=== PATIENT | female | born 1995 | race Two or more races ===

== ENCOUNTER 2024-11-21 20:24 | Emergency (ER) | payer MEDICAID, SELFPAY ==
[2024-11-21 20:39] VITALS: BP 101/70; PULSE 82; RESP 18; TEMP 36.6; O2SAT 98
--- NOTE | 2024-11-21 21:18 | EDNOTE_ITS ---
<Statement entered by Linda Gracia MD - 01/29/25 19:07> As co-signing physician, I was present and available for consult prn. I concur with the plan and care as documented by the midlevel provider. ED Headache RME/HPI General Chief Complaint: Headache Stated Complaint: HEADACHE AND VOMITING Time Seen by Provider: 11/21/24 20:39 Arrival date/time: 11/21/24 20:24 RME / HPI RME / HPI Narrative: 29-year-old female presents to the ED with a complaint of right sided headache that began around noon today. The pain gradually became worse. She took 1 Tylenol tablet twice today without any relief. She denies any previous history of headaches. Her mother has a history of migraine headaches. She is currently 15 weeks and has had an ultrasound. She has had ongoing mild nausea and vomiting however today the vomiting is much worse since the onset of the headache. She denies any recent illness with fever, chills, cough, upper respiratory complaints, abdominal pain or diarrhea. She denies any visual or hearing change She denies any numbness, tingling or weakness to her extremities. Related Data Previous Rx's ?Medication ?Instructions ?Recorded acetaminophen 500 mg tablet 1,000 mg (2 x 500 mg) PO Q 8HR PRN 11/21/24 headache #30 tabs metoclopramide HCl 5 mg tablet 5 mg PO Q8H PRN nausea and 11/21/24 (Reglan) vomiting #15 tabs Allergies Allergy/AdvReac Type Severity Reaction Status Date / Time No Known Allergies Allergy Verified 11/21/24 20:25 Review of Systems Review of Systems Systems Reviewed: All systems reviewed, normal except as documented Past Medical History Social History SMOKING STATUS: Never smoker Course Course Course Narrative: Urinalysis reveals turbid yello urine with 1+ ketones, negative nitrites or leukocyte esterase, 7 RBC's, 5 WBC's and rare bacteria. She was givn Tylenol 1gm PO as well as Reglan 10mg PO. Quality Measures none Orders Category Date Time Status Urinalysis Stat Lab 11/21/24 22:03 Completed Urine Culture Stat Lab 11/21/24 22:03 Completed Acetaminophen Tab [Tylenol ES Tab] Med 11/21/24 21:22 Discontinued 1,000 mg PO X1 ONE Metoclopramide [Reglan] Med 11/21/24 21:22 Discontinued 10 mg PO X1 ONE Vital Signs Vital signs: Vital Signs Temperature 97.9 F 11/21/24 20:39 Pulse Rate 82 11/21/24 20:39 Respiratory Rate 18 11/21/24 20:39 Blood Pressure 101/70 11/21/24 20:39 Pulse Oximetry (%) 98 11/21/24 20:39 Oxygen Delivery Method Room Air 11/21/24 20:39 Headache MDM Narrative MDM Narrative:: 29-year-old female presents to the ED with a complaint of right sided headache that began around noon today. The pain gradually became worse. She took 1 Tylenol tablet twice today without any relief. She denies any previous history of headaches. Her mother has a history of migraine headaches. She is currently 15 weeks and has had an ultrasound. She has had ongoing mild nausea and vomiting however today the vomiting is much worse since the onset of the headache. She denies any recent illness with fever, chills, cough, upper respiratory complaints, abdominal pain or diarrhea. She denies any visual or hearing change She denies any numbness, tingling or weakness to her extremities. Normal exam and neuro exam. Urinalysis reveals turbid yello urine with 1+ ketones, negative nitrites or leukocyte esterase, 7 RBC's, 5 WBC's and rare bacteria. She was givn Tylenol 1gm PO as well as Reglan 10mg PO. Patient data External records reviewed:: None Clinical information provided by:: patient Social determinants that could affect healthcare access:: none Patient has the following chronic illnesses:: N/A How is presenting disease/condition affected by chronic disease/condition?: no chronic disease Evaluation data The following diagnostics were reviewed and interpreted by me:: lab results Lab and/or radiology exams considered but not ordered:: N/A Interpretation Summary: As noted above Medications / Prescriptions Medications or Prescriptions considered but not ordered:: N/A Medication administrations:: Medication Administration History Discontinued Medications Acetaminophen (Acetaminophen 500 Mg Tablet) 1,000 mg PO X1 ONE Stop: 11/21/24 21:23 Last Admin: 11/21/24 22:00 Dose: 1,000 mg Documented By: BRODY Metoclopramide HCl (Metoclopramide 5 Mg Tablet) 10 mg PO X1 ONE Stop: 11/21/24 21:23 Last Admin: 11/21/24 22:01 Dose: 10 mg Documented By: KF As above Consultations Consultation(s) initiated? (list below): No Diagnosis Differential diagnosis headache: migraine, tension headache, headache, meningitis and sinusitis Most likely diagnosis given after review of the tests above:: Headache Admission Indicated Admission indicated?: not indicated Explain why admission is indicated or not indicated:: Stable for discharge Admission Request Was there a request for admission?: No Disposition Plan Disposition Plan: Discharge Discharge Attestation Discharge Attestation: The patient and all family members were given an opportunity to ask questions and understood the discharge instructions. Discharge instructions specifically effects, indications for sooner follow up or return to the emergency department, and the expected course of current diagnosis. Patient condition: Stable Discharge Plan Plan Patient Disposition: HOME (Self Care) Discharge Disposition comment: Stable and Pain Free Prescriptions/Referrals Prescriptions/Med Rec: New metoclopramide HCl [Reglan] 5 mg tablet 5 mg PO Q8H PRN (Reason: nausea and vomiting) Qty: 15 0RF acetaminophen 500 mg tablet 1,000 mg PO Q8HR PRN (Reason: headache) Qty: 30 0RF Problem List Clinical Impression: Headache, Dehydration Patient/Caregiver Discharge Instructions Diet Instructions: Increase water consumption Education Materials: Self-Care for Headaches, ED Dehydration (Adult) Additional Instructions: Follow-up with your primary care physician in 24 to 48 hours. Return to the ED for any new or worsening symptoms. Print Language: Latvian Stand Alone Forms: Emely Award Info., Patient Portal Info Letter PA/MADIHA Supervising Physician PA/MADIHA Supervising Physician: Dr. Gracia
[2024-11-21] MEDS: ACETAMINOPHEN 500 MG TABLET 1000 MG PO (22:00)
[2024-11-21] MEDS: METOCLOPRAMIDE 5 MG TABLET 10 MG PO (22:01)
[2024-11-21 22:09] LABS: Collection Type, Urine Clean Catch
[2024-11-21 22:24] LABS: Amorphous Crystals,Urine Present (Absent); Bacteria,Urine Rare; Bilirubin,Urine Negative (Negative); Blood,Urine Negative (Negative); Clarity,Urine Turbid (Clear/Hazy); Color,Urine Yellow (Lt Yel-Yel); Glucose, Urine Negative (Negative); Ketones,Urine 1+ (Negative); Leukocyte Esterase,Urine Negative (Negative); Nitrite,Urine Negative (Negative); PH,Urine 7.5 (5.0-7.0); Protein,Urine Trace (Neg - Trace); RBC,Urine 7 /hpf (0-3); Specific Gravity,Urine 1.024 (1.001-1.035); Squamous Epithelial Cell,Urine 4 /hpf (0-5); Urobilinogen,Urine Negative mg/dL (0.0-1.0); WBC,Urine 5 /hpf (0-5)
== END 2024-11-22 00:15 | disposition home or self-care (01) ==
LOC: SERX 23:59
PROVIDERS: Physician Assistant; Emergency Provider Emergency Medicine
DX: O99.282 Endocrine, nutritional and metabolic diseases complicating pregnancy, second trimester (principal); E86.0 Dehydration; Z3A.15 15 weeks gestation of pregnancy
CPT/HCPCS: 81001; 87086; 99283; A9270

== ENCOUNTER 2025-05-06 12:40 | Observation (INO) | payer MEDICAID, SELFPAY ==
[2025-05-06 12:40] VITALS: BP 118/69; PULSE 75; RESP 16; RESP 99; TEMP 36.9
[2025-05-06 12:56] VITALS: BP 118/69; PULSE 75
[2025-05-06 13:59] VITALS: BP 122/70; PULSE 85
--- NOTE | 2025-05-06 14:22 | ESPR_ITS ---
Documentation for date of: 05/06/25 OB Labor Progress Note Pelvic Exam Dilation (cm): 4 Effacement (%): 80 station: -2 Amniotic membrane status: Intact Assessment and Plan Comments: Triage Note Regla is a 29yo with SIUP at 38&6wk presenting to L&D per Dr. Mae's instructions for SCE 5cm. No regular/painful ctx. No lof, no vaginal bleeding. Normal movement. PMhx/PNC significant for: -PNC with Dr. Mae after [facility] -primiparous ROS negative other than what was described above. Vitals wnl, afebrile General: well developed, well nourished, no acute distress, conversant Cardiac: normal heart rate Lungs: breathing without distress Abdomen: soft, gravid, non-tender, no rebound or guarding Extremities: no edema of BLE SCE: 4-5/80/-2 unchanged over > 1 hour. Scant brown blood on glove. NST: Reactive, +accels, no decels, mod jhonny [place]: irregular ctx not felt by patient Assessment: Regla is a 29yo with SIUP at 38&6wk with no evidence of labor based on SCE with no twisting frame changer 1 hour and no painful/regular ctx. Vitals wnl, benign exam. Reassuring status. Plan: -Discussed that patient is not in labor, but it could start any time. Discussed in great detail what to return for. Discussed that she will likely see a bit of old brown blood when wiping after voiding which is normal, but she should return for any heavy or bright red bleeding in addition to LOF, regular/painful ctx 3- 5min apart or decreased movement. Discussed because she is already 4-5cm dilated, she should return as soon as ctx are regular/painful. -Continue routine follow up with OBGYN within 1 week if labor does not occur prior -Discussed return precautions Kateryna Stephenson MD
[2025-05-06 14:34] VITALS: BMI 29.2
== END 2025-05-06 14:35 | disposition home or self-care (01) ==
PROVIDERS: Admitting Provider Obstetrics & Gynecology; Visit Provider Obstetrics & Gynecology
DX: Z34.03 Encounter for supervision of normal first pregnancy, third trimester (principal); Z3A.38 38 weeks gestation of pregnancy
CPT/HCPCS: 59025; 59899

== ENCOUNTER 2025-05-07 02:30 | Inpatient (IN) | payer MEDICAID, SELFPAY ==
[2025-05-07] VITALS (251 sets, daily range): BP systolic 93–197; BP diastolic 55–96; PULSE 65–127; RESP 19–99; TEMP 36.8–37.1; O2SAT 85–100; BMI 29.5
[2025-05-07 04:46] LABS: Basophils # (Auto) 0.0 Thou/mm3 (0.0-0.2); Basophils % (Auto) 0 % (0-2.5); Eosinophils # (Auto) 0.0 Thou/mm3 (0.0-0.5); Eosinophils % (Auto) 0 % (0-10); Hematocrit 38.0 % (36.0-46.0); Hemoglobin 12.9 g/dL (12.0-16.0); Immature Granulocytes Auto 0.06 Thou/mm3 (0.00-0.00); Lymphocytes # (Auto) 1.4 Thou/mm3 (1.0-4.8); Lymphocytes % (Auto) 10 % (10-50); Mean Corpuscular HGB Conc 33.9 g/dl (31.0-37.0); Mean Corpuscular Hemoglobin 29.9 pg (25.0-35.0); Mean Corpuscular Volume 88 fL (80-100); Monocytes # (Auto) 0.8 Thou/mm3 (0.0-0.8); Monocytes % (Auto) 6 % (0-12); Neutrophils # (Auto) 12.5 Thou/mm3 (1.8-7.7); Neutrophils % (Auto) 84 % (37-80); Nucleated Red Blood Cell # 0.00 Thou/mm3 (0.00-0.00); Nucleated Red Blood Cell % 0 /100 WBC (0); Platelet Count 156 Thou/mm3 (140-440); RDW Standard Deviation 41.5 fL (36.4-46.3); Red Blood Count 4.31 Miln/mm3 (4.00-5.20); White Blood Count 14.9 Thou/mm3 (3.6-11.0)
[2025-05-07] MEDS: fentaNYL CIT INJ 50 mCg/ML AMP 2ML IVP (04:51)
[2025-05-07 05:12] LABS: Rubella, IgG Antibody Reactive (Immune)
[2025-05-07 05:21] LABS: Syphilis Nonreactive (Nonreactive)
--- NOTE | 2025-05-07 06:51 | ESHP_ITS ---
Documentation for date of: 05/07/25 OB Labor/Induct. HPI History of Present Illness Chief complaint: contractions : 1 Para: 0 Term pregnancies: 0 pregnancies: 0 Living children: 0 History of Abortions: Spontaneous and Elective: 0 History of Vaginal deliveries: 0 History of sections: No History of : No Date of last menstrual period: 08/07/24 JULIO: 05/14/25 Gestational Age (weeks): 39 Gestational Age (days): 0 Gestational age based on last menstrual period: 39 History of present illness: Patient presents for regular, painful ctx. No LOF. No vaginal bleeding. Normal movement. No fevers/chills. In triage water broke. History of Present Dating criteria: based on LMP only Adequate Care: Yes Ultrasounds: normal mid trimester US Narrative: Care with Dr. Mae Labs Labs: Negative: RPR, Hepatitis B, HIV and Group Beta Strep and Unknown: Rubella Titre, Chlamydia, Gonorrhea, Herpes Type 1, Herpes Type 2 and Covid-19 Narrative: 1hr glucola 133 NIPT negative, XX Review of Systems Review of Systems Narrative Review of Systems: Review of Systems Systems Reviewed: All systems reviewed, normal except as documented Constitutional Constitutional: Denies body ache(s), Denies chills, Denies fever(s) and Denies headache(s) ENT Ears, Nose, Mouth, and Throat: Denies headache(s) and Denies vertigo Cardiovascular Cardiovascular: Denies chest pain, Denies palpitations, Denies dyspnea and Denies syncope Respiratory Respiratory: Denies cough, Denies dyspnea Gastrointestinal Gastrointestinal: Denies nausea and Denies vomiting Neurologic Neurologic: Denies convulsions, Denies headache(s), Denies other visual disturbances, Denies syncope and Denies vertigo Past Medical History Family History OTHER FAMILY HX: breast cancer, T2DM, HTN Surgical History SURGICAL: Negative Section Social History SOCIAL: therapeutic activities services worker. since 2023. No tobacco/ETOH/illicit drug use. Meds Home Medications and Allergies Allergies Allergy/AdvReac Type Severity Reaction Status Date / Time No Known Allergies Allergy Verified 05/07/25 06:23 OB Exam Physical Exam Vital signs: Temp Pulse Resp BP Pulse Ox O2 Del Method 98.5 F 82 19 99/64 97 Room Air 05/07/25 02:37 05/07/25 06:51 05/07/25 02:37 05/07/25 06:51 05/07/25 06:50 05/07/25 02:37 Narrative: General: well developed, well nourished, no acute distress, conversant Cardiac: normal heart rate Lungs: breathing without distress Abdomen: soft, gravid, non-tender, no rebound or guarding Extremities: no edema BLE Detailed Labor and Delivery Exam Dilation (cm): 5 Effacement (%): 80 station: -2 Consistency: soft Presentation: Vertex Membranes: ruptured (at 0344) Amniotic fluid: clear monitor accelerations: 15x15 monitor decelerations: None middle or intermediate school principal variability: Moderate (11-25) Contraction frequency (min): q3-5min OB Results Labs 05/07/25 04:20 Labs: Short CBC 05/07/25 Range/Units 04:20 WBC 14.9 H (3.6-11.0) Thou/mm3 Hgb 12.9 (12.0-16.0) g/dL Hct 38.0 (36.0-46.0) % Plt Count 156 (140-440) Thou/mm3 OB Assessment & Plan Assessment and Plan (1) Active labor at term: Status: Acute Assessment and plan: Regla is a 29yo with SIUP at 39&0wk presenting in active labor with SROM, clear, in triage at 03:44. Regular/painful contractions, SCE: 5/80/-2. Vitals wnl, benign exam. Reassuring assessment. PMhx/ significant for: PNC with Dr. Mae Belarusian speaking Plan: -Admit to L&D -Establish IV, routine labs including confirmatory blood type and NG/CT -CEFM -Clear liquid diet -Crab Fisher/consent re: -GBS status: negative -Anticipate -Safe to proceed (2) Rupture of membranes with clear amniotic fluid: Status: Acute (3) 39 weeks gestation of : Status: Acute
[2025-05-07] MEDS: RINGERS LACTATED 1000 ML 1,000 ML 100 ML IV (10:14)
[2025-05-07] MEDS: OXYTOCIN in NS 30 units 30 UNIT/500 ML BAG IV (10:17)
[2025-05-07 10:30] LABS: Chlamydia trachomatis PCR Negative (Not Detect); Neisseria Gonorrhoeae DNA PCR Negative (Not Detect); Trichomonas Negative (Negative)
[2025-05-07] MEDS: OXYTOCIN in NS 20 units 20 UNIT/1,000 ML BAG 125 UNIT IV (17:41)
[2025-05-07] MEDS: fentaNYL CIT INJ 50 mCg/ML AMP 2ML 100 MCG IVP (17:46)
[2025-05-07] MEDS: MINERAL OIL 30 ML UDC TOP (17:48)
[2025-05-07] MEDS: LIDOCAINE HCL 1% 20 ML VIAL INFL (17:48)
[2025-05-07] MEDS: BENZO/LANO/ALOE (Dermoplast) 60 GM CAN 1 SPRAY TOP (17:48)
[2025-05-07] MEDS: IBUPROFEN TAB 400 MG TABLET 800 MG PO (18:33)
--- NOTE | 2025-05-07 20:03 | OBDSUM_ITS ---
Data ([place]) Data Hx Section: No Maternal Blood Type: O Neg Rubella Titre: Positive RPR: Non-reactive Labs: Negative: RPR, Hepatitis B, HIV, Chlamydia, Gonorrhea and Group Beta Strep : 1 Term: 0 : 0 Livin Abortions: Spontaneous & Theraputic: 0 Delivery Data ([place]) Labor Data Initiation of labor: Spontaneous Induction/Augmentation Agent: Pitocin ROM date: 05/07/25 ROM time: 03:55 Amniotic membrane rupture type: Spontaneous Amniotic fluid description: Clear Delivery Data EDC: 05/14/25 EDC calculated by:: LMP/early US confirmation Date of arrival to unit: 05/07/25 Onset of labor date: 05/07/25 Onset of labor time: 03:55 Complete dilation date: 05/07/25 Complete dilation time: 15:50 delivery date: 05/07/25 [place] delivery time: 17:37 Gestational age (weeks): 39 Gestational age (days): 0 Placenta delivery date: 05/07/25 Placenta delivery time: 17:41 Stage 1 total time: Labor - Stage 1 Duration 11 hours and 55 minutes Delivered by: Tameka [facility] ([facility]) Delivery nurse: Bacilio Bustamante nurse: CASSANDRA DARLING Central Office Repairer Supervisor at delivery: No Support person(s) at delivery: ALEXI Other staff at delivery: WHITLEY MORGAN Delivery Method Delivery method: Normal Vaginal Delivery Presentation: Vertex position: OA Anesthesia Type Anesthesia Type: Local and Epidural Delivery Room Medications Delivery room medications: Pitocin 20 u IV Placenta Placenta delivery description: Spontaneous Cord blood sent to lab: Yes cord blood collection: Cord Blood Type, Arterial Cord Blood Gas and Venous Cord Blood Gas Episiotomy Episiotomy description: None Lacerations #3: Perineal: 2nd degree Vaginal: 2nd degree Periurethral: Right first-degree Perineal repair Sutures used for repair: 4.0 Chromic and other (2-0 chromic) EBL Estimated blood loss (ml): 250 Umbilical Cord cord description: 3 Vessels Additional Procedures The patient is a 29-year-old admitted with ruptured membranes and 4 cm dilated she was admitted by Dr. Stephenson.. care was up to date with Dr. Mae. I took over care about 7:00 in the morning on 05/07/2025. The patient ended up having and epidural placed and Pitocin augmentation begun. She was complete at 1550 however she was very numb. The nurse tried to push with her for about 30 minutes ,and the baby's head did not move at all. Her epidural was turned off and she labored down. We began pushing at approximately 1700 with me at the bedside the entire time. The patient pushed approximately 40 minutes delivering a liveborn female at 1737. Findings: liveborn female in the [place]ER[place] presentation with no nuchal cord or meconium. Apgars were 7 and 9. Weight was 6 pounds 5 ounces. The placenta was complete, spontaneous and grossly normal. The patient had a second-degree vaginal tear, a second-degree perineal tear, and a first-degree right periurethral tear, all repaired using 2-0 and 4-0 chromic in a standard fashion. Complications were none. Condition: both mom and infant were in stable condition at delivery. EBL was 250 cc. Complications Complications: None [place] Data ([place]) [place] Data order: 1 's gender: Female weight (gms): 2860 g Weight (pounds): 6 lbs and 4.9 ozs 1 minute: 7 5 minutes: 9
[2025-05-07] MEDS: DOCUSATE SOD 100 MG CAPSULE PO (22:56)
[2025-05-08] VITALS (8 sets, daily range): BP systolic 100–114; BP diastolic 64–70; PULSE 72–85; RESP 16–19; TEMP 36.8–37.3; O2SAT 97–98
[2025-05-08 00:45] LABS: Basophils # (Auto) 0.1 Thou/mm3 (0.0-0.2); Basophils % (Auto) 0 % (0-2.5); Eosinophils # (Auto) 0.0 Thou/mm3 (0.0-0.5); Eosinophils % (Auto) 0 % (0-10); Hematocrit 34.3 % (36.0-46.0); Hemoglobin 11.7 g/dL (12.0-16.0); Immature Granulocytes Auto 0.14 Thou/mm3 (0.00-0.00); Lymphocytes # (Auto) 1.1 Thou/mm3 (1.0-4.8); Lymphocytes % (Auto) 5 % (10-50); Mean Corpuscular HGB Conc 34.1 g/dl (31.0-37.0); Mean Corpuscular Hemoglobin 30.0 pg (25.0-35.0); Mean Corpuscular Volume 88 fL (80-100); Monocytes # (Auto) 1.2 Thou/mm3 (0.0-0.8); Monocytes % (Auto) 6 % (0-12); Neutrophils # (Auto) 19.6 Thou/mm3 (1.8-7.7); Neutrophils % (Auto) 89 % (37-80); Nucleated Red Blood Cell # 0.00 Thou/mm3 (0.00-0.00); Nucleated Red Blood Cell % 0 /100 WBC (0); Platelet Count 145 Thou/mm3 (140-440); RDW Standard Deviation 41.6 fL (36.4-46.3); Red Blood Count 3.90 Miln/mm3 (4.00-5.20); White Blood Count 22.2 Thou/mm3 (3.6-11.0)
[2025-05-08] MEDS: DOCUSATE SOD 100 MG CAPSULE PO ×2 (07:53→21:19)
[2025-05-08] MEDS: ceFAZolin/D5W 2 GM IV 2 GM/100 ML BAG IV ×3 (07:54→22:27)
--- NOTE | 2025-05-08 08:43 | PD.LDPPPRG ---
Subjective Subjective Interval history: Delivery type: , on Ancef for suspected endometritis Patient doing well this morning. No acute complaints. Ambulating, tolerating p.o., and voiding without difficulty. HTN/Pre-E screen negative: No CP, SOB, VERDIN, visual changes, RUQ pain. : Yes Lochia: diminishing Bowel: Flatus + / BM + Exam Vital Signs Temp Pulse Resp BP Pulse Ox O2 Del Method 98.3 F 72 18 106/64 97 Room Air 05/08/25 04:31 05/08/25 04:31 05/08/25 04:31 05/08/25 04:31 05/08/25 04:31 05/08/25 04:31 Constitutional Constitutional: no acute distress Routine HEENT Exam Head: Present normocephalic and atraumatic Eye: Present EOMI and PERRL ENT: Present mucous membranes moist Routine Neck Exam Neck: Present supple and trachea midline Routine Respiratory Exam Respiratory: Present chest non-tender, lungs clear, normal breath sounds and no resp distress Routine Cardiovascular Exam Cardiovascular: Present RRR Routine Abdominal Exam Abdominal: Present soft and normoactive bowel sounds Routine Extremities Exam Extremities: Present full ROM Routine Skin Exam Skin: Present intact, dry and warm Routine Neurological Exam Neurological: Present alert, oriented X3 and CN II-XII intact Routine Psychiatric Exam Psychiatric: Present normal affect and normal thought process Objective Labs 05/08/25 00:41 Labs: Laboratory Results - last 24 hr 05/07/25 05/08/25 05/08/25 04:20 00:41 02:23 WBC 22.2 H D RBC 3.90 L Hgb 11.7 L Hct 34.3 L MCV 88 MCH 30.0 MCHC 34.1 RDW Std Deviation 41.6 Plt Count 145 Neut % (Auto) 89 H Lymph % (Auto) 5 L [place] % (Auto) 6 Eos % (Auto) 0 Baso % (Auto) 0 Neut # (Auto) 19.6 H Lymph # (Auto) 1.1 [place] # (Auto) 1.2 H Eos # (Auto) 0.0 Baso # (Auto) 0.1 Immature Gran # (Auto) 0.14 H Absolute Nucleated RBC 0.00 Immature Gran % 1 H Nucleated RBC % 0 Chlam trachomat DNA PCR Negative N.gonorrhoeae DNA (PCR) Negative Trichomonas DNA Probe Negative Blood Type O Negative Rho(D) IG Studies Ready Antibody Screen POSITIVE Antibody Identification Anti-D from RhoGam Maternal Bleed Negative Blood Bank Wristband ID Yes Assessment & Plan Problem List (1) Active labor at term: Status: Acute (2) Rupture of membranes with clear amniotic fluid: Status: Acute (3) 39 weeks gestation of : Status: Acute (4) Vaginal delivery: Status: Acute Assessment and plan: Assessment: Day #: 1 Maternal condition: Complicated by chorioamnionitis, antibiotics started this a.m. Plan: General: Stable, afebrile. Continue routine monitoring. Encourage ambulation and incentive spirometry. HEENT/Cardiac/Respiratory: Hemodynamically stable. Monitor vitals. No chest pain or shortness of breath. GI: Tolerating diet, flatus/BM as documented. Bowel regimen: Colace / Senna / Miralax PRN : Voiding spontaneously / [place] to gravity (remove when ambulating). Monitor urine output and lochia. Hematology: H/H pending / reviewed. Iron supplementation: [PO ferrous sulfate / IV if indicated]. Transfusion if Hb < 7 and symptomatic. Incision/Perineum: Vaginal: Perineum healing well Wound care: Keep clean and dry. Monitor for signs of infection. Breast: support as needed. Nipple care with lanolin / warm compresses PRN. Pain Control: Multimodal pain control: [Acetaminophen + NSAID ? Narcotics PRN]. Continue routine post-op analgesia schedule. DVT Prophylaxis: Early ambulation. SCDs while in bed. Infection Prophylaxis: On Ancef Psych: Mood stable. Monitor for depression symptoms. [place] Depression Scale prior to discharge. Contraception: Discuss prior to discharge/ in office Disposition: Continue inpatient monitoring. Anticipate discharge on day2 if clinically stable. Routine precautions reviewed. Follow-up: 6-week visit. (5) endometritis: Status: Acute Time Spent With Patient Time: Total time spent is greater than 50% in coordination of care (as documented) at patient's floor/unit and/or counseling patient:
[2025-05-08] MEDS: IBUPROFEN TAB 400 MG TABLET 800 MG PO (14:05)
[2025-05-09 00:15] VITALS: BP 100/63; PULSE 86; RESP 16; TEMP 37.1
[2025-05-09 04:00] VITALS: BP 101/67; PULSE 64; RESP 16; TEMP 36.9
[2025-05-09] MEDS: ceFAZolin/D5W 2 GM IV 2 GM/100 ML BAG IV (05:35)
[2025-05-09 06:05] LABS: Basophils # (Auto) 0.0 Thou/mm3 (0.0-0.2); Basophils % (Auto) 0 % (0-2.5); Eosinophils # (Auto) 0.2 Thou/mm3 (0.0-0.5); Eosinophils % (Auto) 1 % (0-10); Hematocrit 34.9 % (36.0-46.0); Hemoglobin 11.8 g/dL (12.0-16.0); Immature Granulocytes Auto 0.08 Thou/mm3 (0.00-0.00); Lymphocytes # (Auto) 2.2 Thou/mm3 (1.0-4.8); Lymphocytes % (Auto) 17 % (10-50); Mean Corpuscular HGB Conc 33.8 g/dl (31.0-37.0); Mean Corpuscular Hemoglobin 30.2 pg (25.0-35.0); Mean Corpuscular Volume 89 fL (80-100); Monocytes # (Auto) 0.7 Thou/mm3 (0.0-0.8); Monocytes % (Auto) 5 % (0-12); Neutrophils # (Auto) 10.2 Thou/mm3 (1.8-7.7); Neutrophils % (Auto) 76 % (37-80); Nucleated Red Blood Cell # 0.00 Thou/mm3 (0.00-0.00); Nucleated Red Blood Cell % 0 /100 WBC (0); Platelet Count 156 Thou/mm3 (140-440); RDW Standard Deviation 42.9 fL (36.4-46.3); Red Blood Count 3.91 Miln/mm3 (4.00-5.20); White Blood Count 13.4 Thou/mm3 (3.6-11.0)
--- NOTE | 2025-05-09 08:18 | ESDS_ITS ---
DS: Providers Provider Date of admission: 05/07/25 04:03 Primary care physician: Physician No Primary/Family Admitting Provider: Kateryna Stephenson MD Attending Provider on Admission: Arun King MD Consults: 05/07/25 18:39 Referral Routine Comment: Attending Provider on DC: Marlen Madrid MD Discharging Provider: Marlen Madrid MD DS: Diagnosis Discharge Diagnosis (1) endometritis: Status: Acute (2) Vaginal delivery: Status: Acute (3) 39 weeks gestation of : Status: Acute Problem List Completed Was Problem List Reviewed/Reconciled?: Yes Summary/Hosp Course Brief History: Patient presents for regular, painful ctx. No LOF. No vaginal bleeding. Normal movement. No fevers/chills. In triage water broke. / Had an on 05/07/2025 endometritis and afebrile for > 24 hours now / can go home and follow up with her Ob provider in 1 week Peripartum Data Delivery Method: Normal Vaginal Delivery Episiotomy Description: None complications: pelvic infection (endometritis post ) Status at Discharge Cognitive/behavioral status at discharge: Patient had a normal vaginal delivery. care routine. She is doing well, VSS alert and oriented/normal insight and judgment/denies depression or anxiety No chest pain No shortness of breath No fever for 24 hours now Back pain /denies Moving all extremities No calf pain Ambulating pain managed by Tylenol and Motrin, normal Lochia average Voiding spontaneously Other medical issues none Other concerns none Planning to breast-feed/bottle Feed//both Counseled on breast-feeding Counseled on care and follow-up Functional status at discharge: independent ambulation Overall status at discharge: patient is progressing back to baseline Time Spent with Patient Time attestation: Total time spent providing and/or coordinating discharge services: Time spent: Less than 30 minutes Exam Vital Signs Temp Pulse Resp BP Pulse Ox O2 Del Method 98.5 F 64 16 101/67 97 Room Air 05/09/25 04:00 05/09/25 04:00 05/09/25 04:00 05/09/25 04:00 05/08/25 15:50 05/09/25 00:15 Narrative Exam alert x3 chest clear CVS rrr NO THYROMEGALY Uterus is nontender Uterus is firm Just below the umbilicus Bowel sounds present Abdomen soft no hernias noted/no CVAT No calf tenderness Edema Discharge Plan Plan Patient Disposition: HOME (Self Care) Patient condition on transfer: Stable Prescriptions/Referrals Prescriptions/Med Rec: New amoxicillin-pot clavulanate [Augmentin] 500-125 mg tablet 1 tab PO BID Qty: 14 0RF No Action metoclopramide HCl [Reglan] 5 mg tablet 5 mg PO Q8H PRN (Reason: nausea and vomiting) Qty: 15 0RF acetaminophen 500 mg tablet 1,000 mg PO Q8HR PRN (Reason: headache) Qty: 30 0RF Referrals: No Primary/Family,Physician [Primary Care Provider] Patient/Caregiver Discharge Instructions Discharge Activity: activity as tolerated Other Discharge Activity Instructions:: vaginal rest and no heavy lifting more than 10 pounds for 6 weeks Other Discharge Diet Instructions: regular Print Language: Bengali Activity Restrictions/Additional Instructions: follow up with Dr. Mae for visit in 4 to 6 weeks, call clinic to schedule appointment Stand Alone Forms: Emely Award Info., Patient Portal Info Letter Vaccines Vaccines Given During Stay: Rhogam Discharge Order Discharge Orders: Discharge (Routine); Ordered 05/09/25 Ordered By: Marlen Madrid Planned Discharge Date 05/09/25
[2025-05-09 08:55] VITALS: BP 106/68; PULSE 90; RESP 18; TEMP 36.7; O2SAT 97
[2025-05-09] MEDS: DOCUSATE SOD 100 MG CAPSULE PO (09:08)
== END 2025-05-09 12:08 | disposition home or self-care (01) | DRG 560 ==
LOC: S4SX 10:00 → S4NX 19:52
PROVIDERS: Obstetrics & Gynecology; Admitting Provider Obstetrics & Gynecology; Visit Provider Obstetrics & Gynecology
DX: O70.1 Second degree perineal laceration during delivery (principal); O86.12 Endometritis following delivery; Z37.0 Single live birth; Z3A.39 39 weeks gestation of pregnancy
CPT/HCPCS: 36415; 59025; 85025; 85461; 86762; 86780; 86850; 86870; 86900; 86901; 87491; 87591; 87661; J0689; J2590; J2790; J2795; J3010; J3490; J7120; A9270